=== PATIENT | male | born 1950 | race Caucasian/White ===

== ENCOUNTER → 2018-07-22 | Outpatient (CLI) | payer OTHER ==
--- NOTE | 2018-07-22 12:24 | RAD ---
ABDOMEN COMPLETE History: Elevated liver function tests Comparison: None. Findings: Multiple sonographic images of the abdomen are submitted. There is coarsening of the hepatic echotexture. Right lobe of the liver is somewhat enlarged at 18.6 cm longitudinal. Common bile duct is within normal limits at 0.5 cm. Pancreas is not well-visualized due to bowel gas. Inferior vena cava and abdominal aorta are also not well visualized due to bowel gas. Gallbladder is present without intraluminal abnormality, wall thickening, pericholecystic fluid. Right kidney measured 10.7 x 5.4 x 5.1 cm. The left kidney measured 11.3 x 5.5 x 4.7 cm. There is no hydronephrosis of either kidney. Spleen measured 12.8 cm. No free fluid is demonstrated. There are splenic granulomas. Impression: 1. There is hepatic steatosis and mild hepatomegaly. Midline structures are poorly visualized due to bowel gas. Electronically signed by: Ramiro Hogan MD (07/22/2018 12:21 PM) [id number]
== END | disposition home or self-care (01) ==
LOC: US 08:58
PROVIDERS: ATTEND Internal Medicine
DX: K76.0 Fatty (change of) liver, not elsewhere classified (principal); D73.89 Other diseases of spleen; R16.0 Hepatomegaly, not elsewhere classified
CPT/HCPCS: 76700